=== PATIENT | male | born 1960 | race Caucasian/White ===

== ENCOUNTER 2017-09-06 23:22 | Emergency (ER) | payer BC ==
[~2017-09-06] VITALS: Ht 170.2 cm; Wt 75.3 kg
[2017-09-06 23:28] VITALS: Ht 170.2 cm; Wt 75.3 kg
[2017-09-07 01:50] VITALS: BP 137/83
== END 2017-09-07 01:50 | disposition home or self-care (01) ==
LOC: ED 23:22
DX: S01.01XA Laceration without foreign body of scalp, initial encounter (principal); W22.8XXA Striking against or struck by other objects, initial encounter; Y93.89 Activity, other specified; Y92.89 Other specified places as the place of occurrence of the external cause; Y99.8 Other external cause status
CPT/HCPCS: 90715